=== PATIENT | male | born 2000 | race Caucasian/White ===

== ENCOUNTER 2025-01-15 01:06 | Day surgery (SDC) | payer OTHER, SELFPAY ==
[2025-01-09 14:50] VITALS: BMI 25.2
--- OUTSIDE RECORDS SUMMARY | 2025-01-15 01:09 | XMS_ITS | Clinical Summary ---
Author Organization [facility] [address] [place] [address] Care Team Providers Care Commercial Escrow Assistant Name Role Phone Unavailable Primary Care Provider Unavailabl e Encounters Date Type Department Care Team Description 12/24/2024 External Device Data [facility] ABSTRACTION Provider, Abstract 12/24/2024 External Device Data [facility] ABSTRACTION Provider, Abstract 12/24/2024 External Device Data [facility] ABSTRACTION Provider, Abstract 12/18/2024 8:00 AM CDT Ancillary [facility] [address] [place] [address] Jessenia Jennings NP Abnormal weight loss; Fam hx-polycystic kidney from Last 3 Months Social History Tobacco Use Types Packs/Day Years Used Date Smoking Tobacco: Never Assessed Sex and Gender Information Value Date Recorded Sex Assigned at Not on file Legal Sex Male 2:40 PM CDT Gender Identity Not on file Sexual Orientation Not on file Plan of Treatment Health Maintenance Due Date Last Done Comments HPV VACCINES (1 - Male 3-dos e series) 2013 INFLUENZA VACCINE (#1) 2024 COVID-19 Vaccine (2 - 2023-2 5 season) 2024 12/25/2020 DTAP/TDAP/TD VACCINES (6 - T d or Tdap) 01/22/2034 01/23/2024, 10/05/1999, 1998, Additional history exists HEPATITIS B VACCINES Completed 10/05/1999, 1998, 1998 Procedures Procedure Name Priority Date/Time Associated Diagnosis Comments CT ABDOMEN PELVIS W CONTRAST Routine 12/18/2024 8:18 AM CDT Abnormal weight loss Fam hx-polycystic kidney from Last 3 Months Results * CT ABDOMEN PELVIS W CONTRAST (12/18/2024 8:18 AM CDT) Anatomical Region Laterality Modality Abdomen Computed Tomogra phy 12/18/2024 8:11 AM CDT Impressions 12/18/2024 8:59 AM CDT IMPRESSION: No acute intra-abdominal process. Narrative 12/18/2024 8:59 AM CDT EXAM: CT ABDOMEN PELVIS W CONTRAST DATE: 12/18/2024 CLINICAL HISTORY: Unintentional weight loss, family history of polycystic kidney disease TECHNIQUE: After the uneventful intravenous administration of IOPAMIDOL 61 % INTRAVENOUS SOLUTION (SINGLE USE VIAL) Given:100 mL, computed tomographic images of the abdomen and pelvis were obtained in the axial plane. Coronal and sagittal reformatted images were performed. No prior study is available for comparison. FINDINGS: The lung bases are clear. The liver, gallbladder, spleen, pancreas, adrenal glands and kidneys are normal. The bowel loops are normal without evidence of bowel loop dilatation or bowel wall thickening. A normal appendix is present in the right lower quadrant. There is no free fluid or air. The vascular structures of the abdomen and pelvis are patent. There is no abdominal or pelvic adenopathy. The bladder is normal. The prostate is not enlarged. The subcutaneous tissues are normal. The visible bones are unremarkable. Procedure Note Shellie Valdez MD - 12/18/2024 EXAM: CT ABDOMEN PELVIS W CONTRAST DATE: 12/18/2024 CLINICAL HISTORY: Unintentional weight loss, family history of polycystic kidney disease TECHNIQUE: After the uneventful intravenous administration of IOPAMIDOL 61 % INTRAVENOUS SOLUTION (SINGLE USE VIAL) Given:100 mL, computed tomographic images of the abdomen and pelvis were obtained in the axial plane. Coronal and sagittal reformatted images were performed. No prior study is available for comparison. FINDINGS: The lung bases are clear. The liver, gallbladder, spleen, pancreas, adrenal glands and kidneys are normal. The bowel loops are normal without evidence of bowel loop dilatation or bowel wall thickening. A normal appendix is present in the right lower quadrant. There is no free fluid or air. The vascular structures of the abdomen and pelvis are patent. There is no abdominal or pelvic adenopathy. The bladder is normal. The prostate is not enlarged. The subcutaneous tissues are normal. The visible bones are unremarkable. IMPRESSION: No acute intra-abdominal process. Jessenia Jennings EDI SPECIALIST CT ORDERABLES Final Resul t from Last 3 Months Insurance [facility] [employer] PPO [id number]
--- OUTSIDE RECORDS SUMMARY | 2025-01-15 01:09 | XMS_ITS | Data Portability ---
Author Organization [place] [facility] Address [address] [place] [address] Care Team Providers Care Respiratory Support Technician Name Role Phone HARSHIL ELDER Primary Care Provider Unavailabl e Assessment Encounter Date Assessment Date Assessment LastModified by Organization Details LastModified Time 12/10/2024 12/10/2024 LABS Patient presents today for noted below ordered by: Harshil Elder Procedure explained and patient verbalized understanding of the procedure and labs to be drawn today. Venipuncture performed using aseptic technique in the side of the right antebrachial . Venipuncture successful on the 1st attempt with no complications. Dressing applied to the site(s) and pressure held. No signs or symptoms of venipuncture complications observed. Patient left ambulatory with no complaints of pain or discomfort voiced. I rudolph two tiger tubes and one lavender. Not available 12/10/2024 10:04:29 Plan of Treatment Reminders Order Date Submit Date Provider Last Modified By Organization Details Last Modified Time Details Appointments None recorded. Lab TSH + free T4, serum 2024 025 [facility], [facility] [place], [address], 14:11:07 CBC w/ auto diff 2024 025 [facility], [address] [place] [address], [address], 14:11:08 CMP, serum or plasma 2024 025 [email or web address], [facility] [place], [address], 5 14:11:08 HbA1c (hemoglobi n A1c), blood 2024 025 [facility]), [facility] [place], [address], 5 14:11:09 HIV 1 + 2, meaningful use set 2024 025 [facility]), [facility] [place], [address], 5 14:11:09 urinalysis , dipstick 2024 025 [facility], [address] [place] [address], [address], 5 09:11:16 LAURA (antinucle ar antibodies ) screen, serum 2024 025 [facility]), [facility] [place], [address], 5 14:11:10 HbA1c (hemoglobi n A1c), blood [address], [address], 11:54:30 lipid panel, blood [address], [address], 5 11:54:30 glucose, QN, fingerstic k, blood (glucomete r) [address], [address], 5 11:54:30 respirator y pathogens DNA and RNA panel, PCR, nasopharyn x 2024 025 [facility], [address] [place] [address], [address], 13:05:25 Referral gastroente rologist referral 2024 025 GARRICK wesley MD, [address], [address], [place], [address], 14:00:39 Procedures None recorded. Surgeries None recorded. Imaging CT, abdomen, w/wo contrast - Unintentio nal weight loss, family hx of polycystic kidney disease-6 family members on father's side. 2024 025 [email or web address] [facility], [address] [place] [address], [place], [address], 12:32:29 Medication Orders None recorded. Patient TargetsNo targets recorded. Patient Instructions Encounter Date Encounter Id Patient Instructions Last Modified By Organization Details Last Modified Time 12/10/2024 [id number] Encouraged a healthy well balanced diet low in trans/saturated fats and high in fresh fruits, vegetables, whole grains, lean proteins and omega 3 fish oils. Continue participating in regular cardiovascular exercise for 30-45 minutes 3-4 times per week. Pt verbalized understanding. janel Not available 12/10/2024 12:48:31 GI/nephrology referral, discuss care with collaborating physician, healthy high protein diet janel Not available 12/10/2024 12:49:19 Reason for Referral Posting Specialist Referral for Unintentional weight loss Unintentional weight loss-needs upper and lower endoscopy Referring Physician: Harshli Elder, Family Medicine, Encounter Date: 12/11/2024 Results Created Date Observation Date Name Description Value Unit Range Abnormal Flag Note LastModifiedBy Organization Detail LastModifiedTime 10/21/1910/21/2024 respi rator y patho gens DNA and RNA panel , PCR, nasop haryn x Adenovirus Not detect ed Not Available [facility] [address], [place], [address], 10/21/2024 11:52:32 10/21/19 25 10/21/2024 respi rator y patho gens DNA and RNA panel , PCR, nasop haryn x Coronavirus 229E Not detect ed Not Available [address], [address], 10/21/2024 11:52:32 10/21/19 25 10/21/2024 respi rator y patho gens DNA and RNA panel , PCR, nasop haryn x Coronavirus HKU1 Not detect ed Not Available [address], [address], 10/21/2024 11:52:32 10/21/19 25 10/21/2024 respi rator y patho gens DNA and RNA panel , PCR, nasop haryn x Coronavirus NL63 Not detect ed Not Available [address], [address], 10/21/2024 11:52:32 10/21/19 25 10/21/2024 respi rator y patho gens DNA and RNA panel , PCR, nasop haryn x Coronavirus OC43 Not detect ed Not Available [address], [address], 10/21/2024 11:52:32 10/21/19 25 10/21/2024 respi rator y patho gens DNA and RNA panel , PCR, nasop haryn x Human Metapneumovi roberto carlos Not detect ed Not Available [address], [address], 10/21/2024 11:52:32 10/21/19 25 10/21/2024 respi rator y patho gens DNA and RNA panel , PCR, nasop haryn x SARS-CoV-2 Not detect ed Not Available [address], [address], 10/21/2024 11:52:32 10/21/19 25 10/21/2024 respi rator y patho gens DNA and RNA panel , PCR, nasop haryn x Human Rhinovirus/E nterovirus Not detect ed Not Available [address], [address], 10/21/2024 11:52:32 10/21/19 25 10/21/2024 respi rator y patho gens DNA and RNA panel , PCR, nasop haryn x Influenza A Virus Not detect ed Not Available [address], [address], 10/21/2024 11:52:32 10/21/19 25 10/21/2024 respi rator y patho gens DNA and RNA panel , PCR, nasop haryn x Influenza A Virus A/H1 Not detect ed Not Available [address], [address], 10/21/2024 11:52:32 10/21/19 25 10/21/2024 respi rator y patho gens DNA and RNA panel , PCR, nasop haryn x Influenza A Virus A/H3 Detect ed Not Available [address], [address], 10/21/2024 11:52:32 10/21/19 25 10/21/2024 respi rator y patho gens DNA and RNA panel , PCR, nasop haryn x Influenza A Virus A/HI-2009 Not detect ed Not Available [facility] [place] [address], [address], 10/21/2024 11:52:32 10/21/19 25 10/21/2024 respi rator y patho gens DNA and RNA panel , PCR, nasop haryn x Influenza B Virus Not detect ed Not Available [address], [address], 10/21/2024 11:52:32 10/21/19 25 10/21/2024 respi rator y patho gens DNA and RNA panel , PCR, nasop haryn x Parainfluenz a virus (1,2,3,4) Not detect ed Not Available [address], [address], 10/21/2024 11:52:32 10/21/19 25 10/21/2024 respi rator y patho gens DNA and RNA panel , PCR, nasop haryn x Respiratory Syncytial Virus Not detect ed Not Available [address], [address], 10/21/2024 11:52:32 10/21/19 25 10/21/2024 respi rator y patho gens DNA and RNA panel , PCR, nasop haryn x Bordetella Parapetrussi s Not detect ed Not Available [facility] [address], [address], 10/21/2024 11:52:32 10/21/19 25 10/21/2024 respi rator y patho gens DNA and RNA panel , PCR, nasop haryn x Bordetella Pertussi Not detect ed Not Available [address], [address], 10/21/2024 11:52:32 10/21/19 25 10/21/2024 respi rator y patho gens DNA and RNA panel , PCR, nasop haryn x Chlamydia Pneumoniae Not detect ed Not Available [facility], [address], 10/21/2024 11:52:32 10/21/19 25 10/21/2024 respi rator y patho gens DNA and RNA panel , PCR, nasop haryn x Mycoplasma pneumoniae Not detect ed Not Available [facility] [address], [address], 10/21/2024 11:52:32 12/11/19 25 12/11/2024 TSH+F REE T4 TSH 3.460 uIU/m L 0.450- 4.500 normal Not Available [facility] ([facility]) [address] [place], [address], 12/11/2024 14:11:07 12/11/19 25 12/11/2024 TSH+F REE T4 T4,free(dire ct) 1.16 NG/dL 0.82-1 .77 normal Not Available [facility] ([facility]) [address] [place], [address], 12/11/2024 14:11:07 12/11/19 25 12/11/2024 CBC WITH DIFFE RENTI AL/PL ATELE T WBC 4.6 x10e3 /uL 3.4-10 .8 normal Not Available [facility] ([facility]) [address] [place], [address], 12/11/2024 14:11:08 12/11/19 25 12/11/2024 CBC WITH DIFFE RENTI AL/PL ATELE T RBC 4.76 x10e6 /uL 4.14-5 .80 normal Not Available [facility] ([facility]) [address] [place], [address], 12/11/2024 14:11:08 12/11/19 25 12/11/2024 CBC WITH DIFFE RENTI AL/PL ATELE T hemoglobin 14.1 g/dL 13.0-1 7.7 normal Not Available [facility] ([facility]) [address] [place], [address], 12/11/2024 14:11:08 12/11/19 25 12/11/2024 CBC WITH DIFFE RENTI AL/PL ATELE T hematocrit 42.9 % 37.5-5 1.0 normal Not Available [facility] ([facility]) [address] [place], [address], 12/11/2024 14:11:08 12/11/1912/11/2024 CBC WITH DIFFE RENTI AL/PL ATELE T MCV 90 fL 79-97 normal Not Available [facility] ([facility]) [address] [place], [address], 12/11/2024 14:11:08 12/11/19 25 12/11/2024 CBC WITH DIFFE RENTI AL/PL ATELE T MCH 29.6 pg 26.6-3 3.0 normal Not Available [facility] ([facility]) [address] [place], [address], 12/11/2024 14:11:08 12/11/1912/11/2024 CBC WITH DIFFE RENTI AL/PL ATELE T MCHC 32.9 g/dL 31.5-3 5.7 normal Not Available [facility] ([facility]) [address] [place], [address], 12/11/2024 14:11:08 12/11/19 25 12/11/2024 CBC WITH DIFFE RENTI AL/PL ATELE T RDW 12.7 % 11.6-1 5.4 Not Available [facility] ([facility]) [address] [place], [address], 12/11/2024 14:11:08 12/11/19 25 12/11/2024 CBC WITH DIFFE RENTI AL/PL ATELE T platelets 269 x10e3 /uL 150-45 0 normal Not Available [facility] ([facility]) [address] [facility], [place], [address], 12/11/2024 14:11:08 12/11/19 25 12/11/2024 CBC WITH DIFFE RENTI AL/PL ATELE T neutrophils 43 % not estab. normal Not Available [facility] ([facility]) [address] [facility], [place], [address], 12/11/2024 14:11:08 12/11/19 25 12/11/2024 CBC WITH DIFFE RENTI AL/PL ATELE T lymphs 42 % not estab. normal Not Available [facility] ([facility]) [address] [facility], [place], [address], 12/11/2024 14:11:08 12/11/19 25 12/11/2024 CBC WITH DIFFE RENTI AL/PL ATELE T monocytes 10 % not estab. normal Not Available [facility] ([facility]) [address] [facility], [place], [address], 12/11/2024 14:11:08 12/11/19 25 12/11/2024 CBC WITH DIFFE RENTI AL/PL ATELE T eos 4 % not estab. normal Not Available [facility] ([facility]) [address] [facility], [place], [address], 12/11/2024 14:11:08 12/11/19 25 12/11/2024 CBC WITH DIFFE RENTI AL/PL ATELE T basos 1 % not estab. normal Not Available [facility] ([facility]) [address] [facility], [place], [address], 12/11/2024 14:11:08 12/11/19 25 12/11/2024 CBC WITH DIFFE RENTI AL/PL ATELE T immature cells POST CLOSING SPECIALIST Not Available [facility] [address] [place], [address], 12/11/2024 14:11:08 12/11/1912/11/2024 CBC WITH DIFFE RENTI AL/PL ATELE T neutrophils (absolute) 2.0 x10e3 /uL 1.4-7. 0 normal Not Available [facility] ([facility]) [address] [place], [address], 12/11/2024 14:11:08 12/11/1912/11/2024 CBC WITH DIFFE RENTI AL/PL ATELE T lymphs (absolute) 1.9 x10e3 /uL 0.7-3. 1 normal Not Available [facility] ([facility]) [address] [place], [address], 12/11/2024 14:11:08 12/11/19 25 12/11/2024 CBC WITH DIFFE RENTI AL/PL ATELE T monocytes(ab solute) 0.5 x10e3 /uL 0.1-0. 9 normal Not Available [facility] ([facility]) [address] [place], [address], 12/11/2024 14:11:08 12/11/1912/11/2024 CBC WITH DIFFE RENTI AL/PL ATELE T eos (absolute) 0.2 x10e3 /uL 0.0-0. 4 normal Not Available [facility] ([facility]) [address] [place], [address], 12/11/2024 14:11:08 12/11/1912/11/2024 CBC WITH DIFFE RENTI AL/PL ATELE T baso (absolute) 0.0 x10e3 /uL 0.0-0. 2 normal Not Available [facility] ([facility]) [address] [place], [address], 12/11/2024 14:11:08 12/11/19 25 12/11/2024 CBC WITH DIFFE RENTI AL/PL ATELE T immature granulocytes 0 % not estab. Not Available [facility]) [address] [facility], [place], [address], 12/11/2024 14:11:08 12/11/19 25 12/11/2024 CBC WITH DIFFE RENTI AL/PL ATELE T immature grans (abs) 0.0 x10e3 /uL 0.0-0. 1 Not Available [facility] ([facility]) [address] [place], [address], 12/11/2024 14:11:08 12/11/19 25 12/11/2024 CBC WITH DIFFE RENTI AL/PL ATELE T NRBC POST CLOSING SPECIALIST Not Available [facility] ([facility]) [address] [facility], [place], [address], 12/11/2024 14:11:08 12/11/19 25 12/11/2024 CBC WITH DIFFE RENTI AL/PL ATELE T hematology comments: POST CLOSING SPECIALIST Not Available [facility]) [address] [place], [address], 12/11/2024 14:11:08 12/11/19 25 12/11/2024 COMP. METAB OLIC PANEL (14) glucose 94 mg/dL 70-99 normal Not Available [facility] ([facility]) [address] [place], [address], 12/11/2024 14:11:08 12/11/19 25 12/11/2024 COMP. METAB OLIC PANEL (14) BUN 16 mg/dL 6-20 normal Not Available [facility] ([facility]) [address] [place], [address], 12/11/2024 14:11:08 12/11/19 25 12/11/2024 COMP. METAB OLIC PANEL (14) creatinine 0.92 mg/dL 0.76-1 .27 normal Not Available [facility] ([facility]) [address] [facility], [place], [address], 12/11/2024 14:11:08 12/11/19 25 12/11/2024 COMP. METAB OLIC PANEL (14) eGFR 118 mL/mi n/1.7 3 >59 normal Not Available [facility] ([facility]) [address] [place], [address], 12/11/2024 14:11:08 12/11/19 25 12/11/2024 COMP. METAB OLIC PANEL (14) BUN/creatini ne ratio 17 9-20 normal Not Available [facility] [address] [facility], [place], [address], 12/11/2024 14:11:08 12/11/19 25 12/11/2024 COMP. METAB OLIC PANEL (14) sodium 139 mmol/ L 134-14 4 normal Not Available [facility] ([facility]) [address] [place], [address], 12/11/2024 14:11:08 12/11/19 25 12/11/2024 COMP. METAB OLIC PANEL (14) potassium 4.6 mmol/ L 3.5-5. 2 normal Not Available [facility] ([facility]) [address] [facility], [place], [address], 12/11/2024 14:11:08 12/11/19 25 12/11/2024 COMP. METAB OLIC PANEL (14) chloride 101 mmol/ L 96-106 normal Not Available [facility] ([facility]) [address] [place], [address], 12/11/2024 14:11:08 12/11/19 25 12/11/2024 COMP. METAB OLIC PANEL (14) carbon dioxide, total 25 mmol/ L 20-29 normal Not Available [facility] ([facility]) [address] [place], [address], 12/11/2024 14:11:08 12/11/19 25 12/11/2024 COMP. METAB OLIC PANEL (14) calcium 9.6 mg/dL 8.7-10 .2 normal Not Available [facility] ([facility]) [address] [place], [address], 12/11/2024 14:11:08 12/11/19 25 12/11/2024 COMP. METAB OLIC PANEL (14) protein, total 7.1 g/dL 6.0-8. 5 normal Not Available [facility] ([facility]) [address] [place], [address], 12/11/2024 14:11:08 12/11/19 25 12/11/2024 COMP. METAB OLIC PANEL (14) albumin 5.0 g/dL 4.3-5. 2 normal Not Available [facility] ([facility]) [address] [place], [address], 12/11/2024 14:11:08 12/11/19 25 12/11/2024 COMP. METAB OLIC PANEL (14) globulin, total 2.1 g/dL 1.5-4. 5 Not Available [facility] ([facility]) [address] [place], [address], 12/11/2024 14:11:08 12/11/19 25 12/11/2024 COMP. METAB OLIC PANEL (14) bilirubin, total 0.3 mg/dL 0.0-1. 2 normal Not Available [facility] ([facility]) [address] [place], [address], 12/11/2024 14:11:08 12/11/19 25 12/11/2024 COMP. METAB OLIC PANEL (14) alkaline phosphatase 74 IU/L 44-121 normal Not Available [facility] [address] [facility], [place], [address], 12/11/2024 14:11:08 12/11/1912/11/2024 COMP. METAB OLIC PANEL (14) AST (SGOT) 27 IU/L 0-40 normal Not Available [facility] ([facility]) [address] [facility], [place], [address], 12/11/2024 14:11:08 12/11/19 25 12/11/2024 COMP. METAB OLIC PANEL (14) ALT (SGPT) 20 IU/L 0-44 normal Not Available [facility] ([facility]) [address] [facility], [place], [address], 12/11/2024 14:11:08 12/11/1912/11/2024 HEMOG LOBIN A1C hemoglobin A1C 5.9 % 4.8-5. 6 above high normal Predi abete s: 5.7 - 6.4 Diabe faustino: >6.4 Glyce harry contr ol for adult s with diabe faustino: <7.0 Not Available [facility] ([facility]) [address] [facility], [place], [address], 12/11/2024 14:11:09 12/11/1912/11/2024 HIV AB/P2 4 AG WITH REFLE X HIV Ab/P24 Ag screen Non Reacti ve non reacti ve HIV-1 /HIV- 2 antib odies and HIV-1 p24 antig en were NOT detec harsha. There is no labor atory evide nce of HIV infec tion. HIV Negat giuseppe Not Available [facility] ([facility]) [address] [facility], [place], [address], 12/11/2024 14:11:09 12/11/1912/11/2024 LAURA W/REF LILIBETH LAURA direct Negati ve negati ve Not Available [facility] ([facility]) [address] [facility], [place], [address], 12/11/2024 14:11:10 12/11/1912/10/2024 urina lysis , dipst ick Color Idania Not Available [facility] [address], [address], 12/10/2024 08:49:10 12/11/1912/10/2024 urina lysis , dipst ick Appearance Clear Not Available [facility] [address], [address], 12/10/2024 08:49:10 12/11/1912/10/2024 urina lysis , dipst ick Leukocytes negati ve Not Available [facility], [address], 12/10/2024 08:49:10 12/11/1912/10/2024 urina lysis , dipst ick Nitrites negati ve Not Available [facility] [address], [address], 12/10/2024 08:49:10 12/11/1912/10/2024 urina lysis , dipst ick Glucose negati ve Not Available [facility], [address], 12/10/2024 08:49:10 12/11/1912/10/2024 urina lysis , dipst ick Bilirubin negati ve Not Available [facility] [address], [address], 12/10/2024 08:49:10 12/11/1912/10/2024 urina lysis , dipst ick Ketone negati ve Not Available [facility] [address], [address], 12/10/2024 08:49:10 12/11/1912/10/2024 urina lysis , dipst ick Specific Petroleum 1.015 Not Available [facility] [address], [address], 12/10/2024 08:49:10 12/11/1912/10/2024 urina lysis , dipst ick Blood negati ve Not Available [facility], [address], 12/10/2024 08:49:10 12/11/1912/10/2024 urina lysis , dipst ick pH 6.5 Not Available [facility], [address], 12/10/2024 08:49:10 12/11/1912/10/2024 urina lysis , dipst ick Protein negati ve Not Available [facility], [address], 12/10/2024 08:49:10 12/11/1912/10/2024 urina lysis , dipst ick Urobilinogen Normal (0.2) Not Available [address], [address], 12/10/2024 08:49:10 12/11/1912/10/2024 gluco se, QN, finge rstic k, blood (gluc omete r) blood glucose (fasting) 104 md/dL 65-99 Not Available [facility], [address], 12/02/2024 15:01:05 12/11/1912/10/2024 gluco se, QN, finge rstic k, blood (gluc omete r) blood glucose (non-fasting ) mg/dL <140 Not Available [facility], [address], 12/02/2024 15:01:05 12/11/19 25 12/10/2024 HbA1c (hemo globi n A1c), blood HbA1c 5.0 Not Available [address], [address], 12/02/2024 15:01:05 12/11/1912/10/2024 lipid panel , blood total cholesterol 136 mg/dL <200 Not Available [address], [address], 12/02/2024 15:01:05 12/11/19 25 12/10/2024 lipid panel , blood LDL 69 mg/dL <100 Not Available [address], [address], 12/02/2024 15:01:05 12/11/19 25 12/10/2024 lipid panel , blood HDL 50 mg/dL >50 Not Available [address], [address], 12/02/2024 15:01:05 12/11/19 25 12/10/2024 lipid panel , blood triglyceride s 85 mg/dL <150 Not Available [address], [address], 12/02/2024 15:01:05 12/11/19 25 12/10/2024 lipid panel , blood TC/HDL ratio 2.7 <4.5 Not Available [address], [address], 12/02/2024 15:01:05 12/19/19 25 12/18/2024 CT, abdom en + pelvi s, w/wo contr ast No observ ation record ed. [email or web address] [address], [place], [address], 12/18/2024 13:53:26 Result Notes None recorded. Problems Name Problem SNOMED Code Status Onset Date Resolution Date Notes Provider Name and Address Organization Details Recorded Time Error entry deleted [id number] Completed 201710/31/2023 None; PROBABIL ITY: 0 Confir mation: Confirme d Annota tedDispl ay: None Cla ssificat ion: Medical Not Available [facility] 4 04:25:00 Retained foreign body in eye 11189498 Active 2020 Retained foreign body in eye; PROBABIL ITY: 0 SENSIT IVITY: 0.0 Conf irmation : Confirme d Annota tedDispl ay: Foreign body of right eye Clas sificati on: Medical Lifecycl eDateTim e: 18:43:00 +00:00 Not Available [facility] 4 04:25:00 No current problems or disabili ty 076328519 Active 2017 No current problems or disabili ty; PROBABIL ITY: 0 Confir mation: Confirme d Annota tedDispl ay: No known health problems Classif ication: Medical Lifecycl eDateTim e: 18:14:35 +00:[address] [facility] 4 04:25:00 Sore throat 163696860 Active 2023 HARSHIL ELDER NP [address], [place], [address] , [place] - [facility] 4 15:56:51 Cough 01676391 Active 2023 HARSHIL ELDER NP [address], [place], [address] , [place] - [facility] 4 15:56:51 Lipoma of skin 978953025 Active 2023 HARSHIL ELDER NP [address], [place], [address] , [place] [facility] 4 10:06:27 Prediabe faustino 916051689 Active 2023 HARSHIL ELDER NP [address], [place], [address] , [place] [facility] 4 17:48:11 Unintent ional weight loss 469189190 Active 2023 HARSHIL ELDER NP [address], [place], [address] , [place] [facility] 4 11:52:01 Cellulit is of right upper limb [id number] 334030 Active 2023 Abril Mishra NP [address], [place], [address] , [place] [facility] 4 10:04:33 Problem Notes None recorded. Procedures Surgical History Date Name Laterality Status Provider Name and Address Organization Details Recorded Time 12/29/19 05 Tonsillectomy completed Alisia [place]andes [place] [facility] 01/23/2024 09:01:19 extraction of wisdom tooth completed Elly Gregorio [place] [facility] 01/02/2024 15:14:04 Imaging Results Imaging Date Name Status LastModified by Organiz ation Details LastModified Time 12/18/2024 CT, abdomen + pelvis, w/wo contrast completed [address], [place], [address], 12/18/2024 13:53:26 Procedure Notes None recorded. Medical Equipment None Reported. Allergies Allergen ID Allergen Name Allergen Category Reaction Reaction Severity Criticality Documentation Date Start Date Code Code System Note Provider Name and Address Organization Details Recorded Time 762606 nickel environme nt,medica tion Not available Not available Not available 10/31/2023 96226 29 RxNorm Comme nt: React ion Class : Aller gy; Not Available [facility] 02:54:31 Medications Name Sig Start Date Stop Date Status Note LastModified by Organization Details LastModified Time Claritin 10 mg tablet Take 1 tablet every day by oral route. 01/22 completed Not Available Not Available Not Available clobetaso l 0.05 % topical cream 04/28 completed StopType : Physicia n Stop Fer Jensen umber: [id number] S cheduled PRN: No Total Refills: 0 Consta ntIndica tor: Yes CSAS chedule: 0.0 acti ve_statu s_dt_tm: 10:52:31 AM Not Available Not Available Not Available acetamino phen 300 mg-codein e 30 mg tablet 01/01 completed Not Available Not Available Not Available triamcino lone acetonide 0.1 % topical cream APPLY A THIN LAYER TO THE AFFECTED AREA(S) BY TOPICAL ROUTE 2 TIMES PER DAY active Not Available Not Available No t Available cephalexi n 500 mg capsule Take 1 capsule every 6 hours by oral route for 7 days. 12/10 completed Not Available Not Available Not Available ibuprofen 200 mg tablet Take 1 tablet every 6 hours by oral route. 01/22 completed Not Available Not Available Not Available ibuprofen 600 mg tablet 01/01 completed Not Available Not Available Not Available Mucinex 600 mg tablet, extended release Take 1 tablet every 12 hours by oral route. 01/22 completed Not Available Not Available Not Available chlorhexi dine gluconate 0.12 % mouthwash 01/01 completed Not Available Not Available Not Available Flulaval Quad [id number] 60 mcg (15 mcg x 4)/0.5 mL intramusc ular susp. 07/26 completed StopType : Physicia n Stop Fer Jensen umber: [id number] N extDoseD ate: 10:48:00 AM Const antIndic ator: No activ e_status _dt_tm: 10:49:23 AM Not Available Not Available Not Available COVID-19 vaccine, Ad26.COV2 .S (Nicole) (PF) 0.5 mL IM suspensio n (EUA) 12/25 completed DrugForm : susp Sto pType: Physicia n Stop Fer Jensen umber: [id number] N extDoseD ate: 12/25/2020 11:36:00 AM Const antIndic ator: No activ e_status _dt_tm: 12/25/2020 11:37:04 AM Not Available Not Available Not Available Vitals Date Recorded Body height Body temperature Heart rate Oxygen saturation Oxygen saturation in Arterial blood by Pulse oximetry Respiratory rate Body mass index (BMI) Body weight Systolic blood pressure Diastolic blood pressure Provider Name and Address Organization Details Last Updated DateTime 4 185.42 cm 97.8 [degF] 68 /min 98 % 98 % 16 /min 24.9 kg/m2 27131.9 6 g 115 mm[Hg] 75 mm[Hg] Guerda Virk [place] [facility] 4 10:40:36 Date Recorded Body height Body mass index (BMI) Body weight Heart rate Body temperature Oxygen saturation Oxygen saturation in Arterial blood by Pulse oximetry Respiratory rate Systolic blood pressure Diastolic blood pressure Provider Name and Address Organization Details Last Updated DateTime 5 185.42 cm 23.2 kg/m2 73300.2 6 g 63 /min 97.4 [degF] 98 % 98 % 15 /min 113 mm[Hg] 63 mm[Hg] Wendy Aroldo [place] [facility] 5 08:27:43 Date Recorded Body height Body mass index (BMI) Body weight Provider Name and Address Organization Details Last Updated DateTime 01/08/2025 185.42 cm 24.1 kg/m2 21143.25 g lAisia Hernandes [place] [facility] 01/08/2025 11:54:46 Social History Question Answer Notes LastModified by Organizat ion Details LastModified Time Tobacco Smoking Status Never Smoker Elly merrill [place] [facility] 01/02/2024 15:13:40 What Is Your Level Of Alcohol Consumption? Occasional [email or web address] Information not available 01/23/2024 What Is Your Level Of Caffeine Consumption? Occasional [email or web address] Information not available 01/23/2024 How Much Tobacco Do You Chew? None [email or web address] Information not available 01/23/2024 In The 14 Days Before Symptom Onset, Have You Had Close Contact With A Laboratory-confir med COVID-19 While That Case Was Ill? No [email or web address] Information not available 01/02/2024 In The 14 Days Before Symptom Onset, Have You Had Close Contact With A Person Who Is Under Investigation For COVID-19 While That Person Was Ill? No [email or web address] Information not available 01/02/2024 Have You Been To An Area Known To Be High Risk For COVID-19? No Information not available 01/02/2024 What Is The Highest Grade Or Level Of School You Have Completed Or The Highest Degree You Have Received? 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 Never [email or web address] Information not available 01/23/2024 Does Anyone Physically Hurt You At Home? Never [email or web address] Information not available 01/23/2024 Does Anyone Scream Or Curse At You? Never [email or web address] Information not available 01/23/2024 Does Anyone Threaten/bully You With Harm? Never [email or web address] Information not available 01/23/2024 Lives With [email or web address] Information no t available 01/23/2024 Sleep Habits 6-8 Hrs Avg. Informatio n not available 01/23/2024 Have You Ever Served In The ? No [email or web address] Information not available 01/23/2024 What Is Your Relationship Status? [email or web address] Information not available 01/23/2024 Are You Passively Exposed To Smoke? No Information no t available 03/13/2024 Do You Or Have You Ever Used Smokeless Tobacco? Former Smokeless Tobacco User [email or web address] Information not available 01/23/2024 Has Tobacco Cessation Counseling Been Provided? No [email or web address] Information not available 01/02/2024 Do You Or Have You Ever Used Any Other Forms Of Tobacco Or Nicotine? No [email or web address] Information not available 01/02/2024 Sex: Unknown Functional Status None recorded. Mental Status None recorded. Family History Relationship Description Onset Age of this Age Resolved Age Notes LastModified by Organization Details LastModified Time Paternal Uncle Family history of Polycystic kidney 2 Uncles [email or web address] Not available 12/10/2024 08:15:56 Paternal Aunt Family history of Polycystic kidney 2 Aunts [email or web address] Not available 12/10/2024 08:15:56 Father Family history of Polycystic kidney [email or web address] Not available 12/10 08:15:56 Father Essential hypertension [email or web address] Not available 08:15:56 Unspecified Relation Family history of Polycystic kidney 2 cousin s [email or web address] Not available 12/10/2024 08:15:56 Mother Lupus erythematosu s [email or web address] Not available 12/10 08:15:56 Mother Myocardial infarction 2 years ago (2021) Not available 03/13/2024 11:29:40 Paternal Grandfather Malignant neoplasm of lung [email or web address] Not available 03/13 11:30:11 Paternal Grandfather Malignant neoplasm of prostate [email or web address] Not available 12/10 08:15:56 Medical History Condition Response Coronary Artery Disease N Gout N Macular Degeneration N Atrial Fibrillation N Heart Valve Disorder N Kidney Stones N Hyperthyroidism N MRSA N COPD N Depression N Migraine Headaches N Retinopathy Diabetic N Hodgkin's Lymphoma N Positive TB Skin Test N Obstructive Sleep Apnea N Sinus Infections N Infertility N Carpal Tunnel N Lupus (SLE) N DVT (Blood Clot in legs) N Rheumatoid Arthritis N Fibromyalgia N Incontinence, stress N Anxiety N Venous Insufficiency (Swelling of Legs & Ankles) N Anemia, other N Vit D Deficiency N Peptic Ulcer Disease N Menstrual Cycle- Heavy N Irritable bowel N Blood in urine N GERD (reflux) N Compression fracture of spine (vertebral ) N Carotid Artery Disease N Tuberculosis N AIDS/HIV N Hip fracture N Anemia, iron deficient N Asthma N Blood clotting disorder N Diabetes Type II N Peripheral Vascular Disease N Myocardial Infarction with Stent (Heart Attack) N Abnormal Pap N Diabetes Type I N Hepatitis N Cirrhosis N Seizure Disorder N Stroke (CVA) N Colon Cancer N Leukemia N Breast Cancer N Erectile Dysfunction (ED) N Myocardial Infarction w/o Stent (Heart A ttack) N Raynauds Disease N Lung Cancer N Glaucoma N Hypothyroidism N [place] N Bipolar N Hypertension (High Blood Pressure) N Irregular Menses N Other Rhythm Problem N Bone loss (Osteopenia or osteoporosis) N Varicose Veins N Hearing Loss N Cervical Cancer N Hypoglycemia N Hyperlipidemia (High Cholesterol) N Chronic Kidney Disease N Vit B12 Deficiency N Incontinence, urge N Menstrual Cycle- Painful N Panic Disorder N Schizophrenia N Osteoarthritis N BPH (enlarged prostate) N UTI Chronic N Lyme Disease N Prostate Cancer N Abdominal Aortic Aneurysm N Shingles (HZ) N Non-Hodgkin's Lymphoma N Ovarian Cancer N Lumbar Spine Disease N Abnormal Mammogram N Cervical Spine Disease N Congestive Heart Failure (CHF) N Eczema N Rectal Bleeding N Dementia N Diverticulitis N Bladder Cancer N Psoriasis N Gall Stones N Thrombocytopenia (low platelets) N Allergic Rhinitis (seasonal allergies) N Immunizations Vaccine Type Date Status Note Provider Nam e and Address Organization Details Recorded Time COVID-19 vaccine, vector-nr, rS-Ad26, PF, 0.5 mL 12/25/2020 completed Alisia Hernandes null, [place] [facility] 03/08/2024 14:11:05 Tdap 01/23/2024 completed Alisia Hernandes null, [place] [facility] 01/23/2024 10:26:42 Hib-Hep B 10/05/1999 completed Breshawna Virk null, [place] [facility] 08/26/2024 10:41:45 Hib-Hep B 1998 completed Breshawna Virk null, [place] [facility] 08/26/2024 10:41:45 Hib-Hep B 1998 completed Breshawna Virk null, [place] [facility] 08/26/2024 10:41:45 IPV 1998 completed Breshawna Virk null, [place] [facility] 08/26/2024 10:41:45 IPV 1998 completed Breshawna Virk null, [place] [facility] 08/26/2024 10:41:45 MMR 10/05/1999 completed Breshawna Virk null, [place] [facility] 08/26/2024 10:41:45 OPV 10/05/1999 completed Breshawna Virk null, [place] [facility] 08/26/2024 10:41:45 DTaP 10/05/1999 completed Breshawna Virk null, [place] [facility] 08/26/2024 10:41:45 DTaP 1998 completed Breshawna Virk null, [place] [facility] 08/26/2024 10:41:45 DTaP 1998 completed Breshawna Virk null, [place] [facility] 08/26/2024 10:41:45 DTaP 1998 completed Breshawna Virk null, [place] [facility] 08/26/2024 10:41:45 Past Encounters Encounter ID Performer Location Encounter Start Date Encounter Closed Date Diagnosis/Indication Diagnosis SNOMED-CT Code Diagnosis ICD10 Code Diagnosis Note [id number] HARSHIL ELDER NP [address] [address] 01/02/2024 14:54:02 01/02/2024 16:07:40 Sore throat 782799152 J02.9 Rapid strep is negative. Cough 11776743 R05.9 Claritin 10 mg tablet and Mucinx DM 600 mg given to pt in health center. Called and informed him [facility] y panel is negative. Encouraged to rest and push fluids. Stay home if you have a fever. Wear a well-fitti ng mask if you do have to be around others. Avoid travel. Use OTC medication s for symptom management . May take OTC antihistam ine, Flonase, Sudafed and Tylenol/Ib uprofen per package directions . Warm salt water gargles or throat lozenges for sore throat. Cool mist vaporizer in the home. F/u in clinic or with PCP if symptoms persist or worsen. Pt in agreement and verbalized understand ing. Appointmen t made in January to establish primary care. [id number] Alisia Hernandes [address] [address] 01/23/2024 08:57:01 01/23/2024 10:29:09 Adult health examination 353182419 Z00.00 Labs ordered. Will call him with the results. Requesting previous PCP records. Will review once received. F/u for eye exam. Will complete Vitality forms once labs received. Forms in file cabinet in receptionist nurse area. Pt verbalized understand ing. Administra tion of diphtheria, pertussis, and tetanus vaccine 141060595 Z23 Tdap booster administer ed and copy of VIS given to him. Side effects reviewed. Pt verbalized understand ing. Lipoma of skin 813465849 D17.30 Continue to monitor. F/u if you develop pain or swelling. Pt verbalized understand ing. [id number] HARSHIL ELDER NP [address] [address] 01/24/2024 17:46:37 01/24/2024 18:09:01 Prediabetes 281131364 R73.03 A1c is 5.8%. Encouraged a healthy well balanced diet low in trans/satu rated fats and high in fresh fruits, vegetables , whole grains, lean proteins and omega 3 fish oils. Avoid sugars and simple carbs. Participat e in regular cardiovasc ular exercise for 30-45 minutes 3-4 times per week. Will recheck on a yearly basis. Pt verbalized understand ing. Test resul t to patient by telephone [id number] Z71.2 CBC, CMP, TSH, Vitamin D and lipid panel WNL. Vitality forms completed and pt states he will come by tomorrow to pick them up. Informed it is his responsibi lity to send forms to [employer] for points. Pt verbalized understand ing. [id number] HARSHIL ELDER NP [employer] [address] [address] 03/13/2024 11:26:05 03/13/2024 12:54:20 Unintentional weight loss 630598867 R63.4 Per chart review, has lost 5 pounds in the last two months. A/G ratio was slightly elevated on recent CMP. A1c was 5.8%. Will recheck labs even though they were checked in early Jan, 2024. HIV and Hep C added. Will call pt with the results. Encouraged a healthy well balanced diet high in lean proteins. F/u in 1 month. If labs are normal with continued unintentio nal weight loss will need referral to GI or other specialist depending upon labs/sympt oms. Pt verbalized understand ing. [id number] HARSHIL ELDER NP [employer] [address] [address] 03/14/2024 13:59:26 03/14/2024 14:16:41 Unintentional weight loss 229185705 R63.4 Labs WN except A1c is still 5.8%. A/G ratio is back WNL on CMP. Encouraged a healthy well balanced diet high in lean proteins and low in sugars and simple carbs. F/u in 1 month. Pt verbalized understand ing. Prediabetes 169674703 R7 3.03 See above. Test resul t to patient by telephone [id number] Z71.2 CBC, CMP and TSH are WNL. HIV and Hep C are non reactive. Pt verbalized understand ing. [id number] HARSHIL ELDER NP [facility] [address] [address] 04/11/2024 08:26:53 04/11/2024 08:57:02 Unintentional weight loss 870109642 R63.4 Recent labs WNL. Weight is stable and same as last months visit. Encouraged a healthy well balanced diet high in lean proteins and low in sugars and simple carbs. F/u for any unintentio nal weight loss. Pt verbalized understand ing. [id number] Abril Mishra NP [address] [address] 08/23/2024 09:28:44 08/23/2024 11:10:33 Cellulitis of right upper limb [id number] 4059044 L03.113 Pt has no risk factors for MRSA. Will cover for staph/stre p with cephalexin 500 q6h X 7 days. Pt to take full course even if he begins to feel better. Can elevate extremity when possible. Can take tylenol/ib uprofen otc as directed as needed for pain/fever . Discussed cellulitis handout with pt and thoroughly discussed indication s of worsening/ when to seek immediate re-evaluat ion, including fever, worsening swelling, redness extending farther, n/v and cannot keep antibiotic s down, new pain in the area, etc. Pt verbalized understand ing and verbalized back the indication s of when to seek care. Otherwise pt will RTC for re-evaluat ion on Monday with this [employer] SPECIALIST to ensure improvemen t. Bite of insect 480418206 W57.XXXA Pt can use cortisone cream to the insect bites as needed for itching up to 2 times a day. Discussed r/b/se - and not to use for more than 2 weeks. Can also take otc antihistam ine like benadryl for itching at night; take as directed. [id number] Abril Mishra NP [facility] [address] [address] 08/26/2024 10:35:57 08/26/2024 11:20:41 Cellulitis of right upper limb 9393765298 5781197 L03.113 Pt to continue the full course of cephalexin . Can still continue to use the triamcinol one for itching/sw elling as needed but can taper off if not needed. If any changes, worsening, stops improving, etc. pt is to RTC. Pt verbalized understand ing and verbalized back the indication s of when to seek care. [id number] HARSHIL ELDER NP [address] [address] 10/21/2024 12:02:56 10/21/2024 13:13:17 Cough 75038428 R05.9 Informed him [employer] panel is positive for Influenza A H3. Educated on length of virus and symptom management . Discussed Tamiflu and side effects. Pt refused. Rest and push fluids. Stay home if you have a fever until you have been fever free for 24 hours without medication or if you do not feel well. Avoid contact with others. Wear a well-fitti ng mask if you do have to be around others. Avoid travel. Use OTC medication s for symptom management . May take OTC antihistam ine, Flonase, Sudafed, Mucinex DM and Tylenol/Ib uprofen per package directions . Cool mist humidifier in the home at night. Pt in agreement and verbalized understand ing. [id number] HARSHIL ELDER NP [address] [address] 12/10/2024 08:14:02 12/10/2024 13:01:35 Adult health examination 821078399 Z00.00 Unable to perform urine cotinine test due to issues with testing. Name/phone number added to list and will call once issues are resolved. A1c and lipids WNL. Pt verbalized understand ing. Unintentio nal weight loss 759659620 R63.4 UA negative. Labs ordered. Will call him with the results. Will need referral to GI if labs are negative. ? referral to nephrology based upon family hx. Pt asymptomat ic. Will discuss plan of care with my collaborat [facility] physician, Dr. Hughes, if labs are WNL. Pt verbalized understand ing. [id number] HARSHIL ELDER NP [address] [address] 12/11/2024 15:14:59 12/11/2024 16:38:24 Unintentional weight loss 869589354 R63.4 CBC, CMP and TSH WNL. LAURA and HIV are negative/n on reactive. Case discussed with my collaborat [facility] physician, Dr. Hughes. Referred to GI for upper and lower endoscopy. Also, CT scan of abdomen w/wo contrast ordered through [facility]. Called and spoke to Shena at [facility]. CT scan scheduled on 12/18/24 at 8 a.m. Pt came by health center to give us copy of his insurance card as [facility] will complete PA. Informed of date and time of CT scan and given contact informatio n. Instructed to be NPO for 6 hours prior to scan and [facility] between 7-7:30 on that date. Bring insurance card and photo ID. Will call him with results. Also, given contact informatio n for GI and encouraged to f/u if does not receive a call from office to schedule. Pt verbalized understand ing. Prediabetes 372087765 R7 3.03 A1c is 5.9%. Encouraged to limit sugar and simples carbs in his diet. Pt verbalized understand ing. Family his tory of Polycystic kidney 938897364 Z82.71 See above [id number] Alisia Hernandes [address] [address] 01/08/2025 11:54:20 01/08/2025 12:40:33 Health Concerns Section Related Observation LastModified by Organization Detai ls LastModified Time None Recorded Concern Status LastModified by Organization Details LastModified Time None Recorded Advance Directives Directive None Recorded Payers Encounter Date Sequence Insurance Name Policy Number Policy Fuentes Covered Member ID Fuentes Member ID Guarantor Name 08/26/2024 1 [employer] - [employer] - ALL PLANS (PPO) [id number] Maximus Scheiter UNKNOWN Maximus Scheiter 10/21/2024 1 [employer] - [employer] - ALL PLANS (PPO) [id number] Maximus Scheiter UNKNOWN Maximus Scheiter 12/10/2024 1 [employer] - [employer] - ALL PLANS (PPO) [id number] Maximus Gonsales UNKNOWN Maximus Gonsales 12/11/2024 1 [employer] - [employer] - ALL PLANS (PPO) [id number] Maximus Gonsales UNKNOWN Maximus Gonsales 01/08/2025 1 [employer] - [employer] - ALL PLANS (PPO) [id number] Maximus Gonsales [id number] Maximus Gonsales Notes Date Note Type Note Provider Name and Address Organization Details Recorded Time 08/26/2024 text/html 24 y/o M present s for cellulitis check from his visit on Monday. The redness is almost completely gone. Minimal residual itching in the R elbow but hasnt needed to use any medication or cream. Swelling is gone. Tolerated the cephalexin well with no side effects and has been compliant, though he did forget to take the pill today prior to arrival. No fever or chills. No CP/SOB. No weakness or fatigue. No n/v/d. No drainage from the bites. No warmth to the skin. Slightly erythematous at the R elbow but otherwise mostly back to normal. Abril Mishra NP [address], [place], [address], [place] [facility] 08/26/2024 10:55:23 10/21/2024 text/html Per telephone after earlier walk in for [facility] testing, pt reports cough, nasal congestion, headaches and rhinorrhea which started yesterday. Denies any fever, chills, body aches, sore throat, SOB or wheezing. No known sick contacts. HARSHIL ELDER NP [address], [place], [address], [place] [facility] 10/21/2024 13:09:31 12/10/2024 text/html [facility]. Primary care is managed by [facility]. Eats a healthy diet. Exercises by walking a lot at work. Last dental exam September 2024. UTD on eye exam. Does not smoke and drinks beer occasionally on the weekends. Drinks 2 cups of coffee daily.Is losing weight without trying. Weight is down 13 pounds in last 3 months and 16 pounds in last 11 months. Drinking protein shakes at times. Mother and have expressed concerns. Negative workup last December and weight was stable at that time.Six family members on his dad's side have polycystic kidney disease. Has noticed increased urination during the day but drinks a lot of water. Denies any fatigue, N/V, abdominal pain, hematuria, diarrhea, constipation or blood in his stool.Expecting first baby in May. HARSHIL ELDER NP [address], [place], [address], [place] [facility] 12/10/2024 12:54:28 12/11/2024 text/html Telephonic visit to review lab results from visit yesterday. Labs drawn due to weight loss of 13 pounds in last 3 months and 16 pounds total in last 11 months without trying. Asymptomatic. Family hx on father's side of polycystic kidney disease (six relatives). HARSHIL ELDER NP [address], [place], [address], [place] [facility] 12/30/2024 13:34:21
[2025-01-15 12:16] VITALS: BP 124/80; PULSE 71; RESP 18; TEMP 36; O2SAT 100
--- NOTE | 2025-01-15 12:21 | WPDANESEPPF ---
Anes - Initial Pre Proc Eval Procedure: Operation Date: 01/15/25 14:30 Proposed Procedures p Esophagogastroduodenoscopy & Colonoscopy - Tay Lopez MD Date/Time: 01/15/25 12:21 Surgeon: Tay Lopez MD Pre Op Diagnosis: Abnormal weight loss Patient Data Age: 24 Gender: M Height: 1.83 m Weight: 76.3 kg Last Vital Signs Temp 96.8 F L 01/15/25 12:16 Pulse 71 01/15/25 12:16 Resp 18 01/15/25 12:16 BP 124/80 01/15/25 12:16 Pulse Ox 100 01/15/25 12:16 O2 Del Method Room Air 01/15/25 12:16 Allergies Allergy/AdvReac Type Severity Reaction Status Date / Time nickel AdvReac Rash Verified 01/15/25 12:14 Home Medications ?Medication ?Instructions ?Recorded ?Confirmed ?Type No Home Medications 01/09/25 01/15/25 History Patient hx anesthesia problems: none Family hx anesthesia problems: none Results Review: All pre-operative results and documents have been reviewed as part of the pre-operative evaluation. [facility] Social History Social History Smoking status: Never smoker Living arrangements: with family Spiritual care concerns: No Anes - Eval Final PreProcedure Day of Procedure 01/15/25 12:21 Patient weight: normal and thin Lungs: normal air movement Airway: Mallampati scale class 1 Neurological: alert and oriented Last oral intake: >/= 8 hours ASA classification: I Emergent: no Anesthetic plan: proceed Anesthesia type and monitoring: general GIVS and standard monitoring Results Review: All pre-operative results and documents have been reviewed as part of the pre-operative evaluation. Healthy, here for wt loss, borderline hyperglycemia (no meds). Informed Consent: The patient's anesthetic plan and its attendant risks and benefits were discussed with the patient/family/POA. Questions were solicited and answers provided to the satisfaction of the patient/family/POA.
[2025-01-15] MEDS: LACTATED RINGERS 1,000 ML 150 ML IV CONT (12:25)
--- NOTE | 2025-01-15 12:34 | PM.HPGS ---
History of Present Illness History of Present Illness Consent: Risks, benefits, and alternatives have been discussed and questions answered. Patient agrees to proceed with procedure. Chief complaint: Abnormal weight loss Narrative: Maximus Gonsales is a 24 year old male here for first egd and colonoscopy, no gi issues but had untentional weight loss Review of Systems Review of Systems: All systems reviewed & are unremarkable except as noted in HPI and below PMFSH Past Medical History Medical History (Updated 01/15/25 @ 12:35 by Tay Lopez MD) Weight loss Social History Social History Smoking status: Never smoker Living arrangements: with family Spiritual care concerns: No Meds Home Medications and Allergies Home Medications ?Medication ?Instructions ?Recorded ?Confirmed ?Type No Home Medications 01/09/25 01/15/25 History Allergies Allergy/AdvReac Type Severity Reaction Status Date / Time nickel AdvReac Rash Verified 01/15/25 12:14 Vital Signs Vital Signs - 24 hr 01/15/25 12:16 Temperature 96.8 F L Pulse Rate 71 Respiratory Rate 18 Blood Pressure 124/80 Pulse Oximetry 100 Oxygen Delivery Room Air Exam Const: General: comfortable and no acute distress HENMT: Face/Nose/Sinus: Normal nares present Eyes: General: appearance normal, both eyes and all related structures Neck: Neck: no JVD Resp: Auscultation: clear to auscultation bilaterally Cardio: Rate: regular rate Rhythm: regular rhythm GI: Inspection: non-distended GI Palp: Yes Soft to palpation Skin: General skin exam: normal color Neuro: General: gait normal Speech: normal speech Extrem: General: normal to inspection Psych: Mental Status: mental status grossly normal Assessment and Plan Assessment and plan (1) Weight loss: Code(s): R63.4 - Abnormal weight loss Status: Acute Assessment and Plan: egd and colonoscopy
--- NOTE | 2025-01-15 12:48 | SUR.OPER ---
EGD start 1242 end 1244, Colonoscopy start 1247
[2025-01-15 12:56] VITALS: BP 98/57; PULSE 61; RESP 15; O2SAT 99
[2025-01-15 13:06] VITALS: BP 94/57; PULSE 58; RESP 13; O2SAT 100
[2025-01-15 13:16] VITALS: BP 108/63; PULSE 59; RESP 22; O2SAT 100
== END 2025-01-15 13:34 | disposition home or self-care (01) ==
PROVIDERS: PCP Nurse Practitioner; Visit Provider Internal Medicine Gastroenterology
PROC: 0DJ08ZZ Inspection of Upper Intestinal Tract, Via Natural or Artificial Opening Endoscopic (ICD-10-PCS; CPT 45378; principal; 2025-01-15 14:30)
DX: R63.4 Abnormal weight loss (principal)
CPT/HCPCS: 43239; 45378; 88305; J2704; J7120

== ENCOUNTER 2025-08-26 11:21 | Emergency (ER) | payer OTHER, SELFPAY ==
[2025-08-26 11:33] VITALS: BP 129/87; PULSE 85; RESP 16; TEMP 36.6; O2SAT 99
--- NOTE | 2025-08-26 12:01 | ED.URI ---
HPI - URI/Sore Throat General Chief Complaint: Upper Respiratory Infection Stated Complaint: SORE THROAT/COUGH Time Seen by Provider: 08/26/25 12:01 Source: patient, RN notes reviewed and old records reviewed Mode of arrival: ambulatory Limitations: no limitations History of Present Illness HPI Narrative: 25-year-old male presents to the [facility] with 2-3 day history of a sore throat, 4-5 day history of cough, sinus drainage. Reports that he did take NyQuil last night. No treatment prior to arrival today. Treatments prior to arrival: cold medicine Related Data Home Medications ?Medication ?Instructions ?Recorded ?Confirmed ?Last Taken ?Type No Home Medications 01/09/25 01/15/25 Unknown History Allergies Allergy/AdvReac Type Severity Reaction Status Date / Time nickel AdvReac Rash Verified 08/26/25 11:28 Review of Systems Review of Systems: All systems reviewed & are unremarkable except as noted in HPI and below Constitutional: Constitutional: Reports no additional constitutional complaints ENT: Reports as per HPI and Reports sore throat Cardiovascular: Cardiovascular: Reports no additional cardiovascular complaints, Denies chest pain and Denies dyspnea Respiratory: Respiratory: Reports as per HPI, Denies chest congestion, Reports cough and Denies dyspnea Musculoskeletal: Musculoskeletal: Reports no additional musculoskeletal complaints Integumentary/Breasts: Skin/Breast: Reports system reviewed and no additional complaints, except as docu PMFSH Past Medical History Medical History Weight loss Social History Social History Smoking status: Never smoker Living arrangements: with family Spiritual care concerns: No Comments At the time of my signature, I reviewed and agree with the nursing past medical, surgical, social, and family history. There is no relevant family history pertinent to the patient complaint. Exam Const: General: cooperative, healthy appearing, comfortable, no acute distress, well developed, alert and well nourished Nutritional Appearance: well nourished Orientation/consciousness: patient oriented x3 Limitations: no limitations HENMT: Head: normal to inspection Ears: hearing grossly normal bilaterally, external ears normal, TM's normal bilaterally, EAC's normal, mastoids normal and no periauricular adenopathy Mouth: Yes Normal oral and palatal mucosa present, Yes lip normal, Yes tongue normal and Yes moist mucous membranes Throat: posterior oropharynx normal, tonsils normal, uvula midline, postnasal drainage and no uvular edema Eyes: General: appearance normal, both eyes and all related structures Alignment and Position: alignment normal Neck: Neck: normal visual inspection, full ROM, no lymphadenopathy and no meningeal signs Chest: Chest palpation & inspection: normal inspection of the chest Resp: Effort & Inspection: normal respiratory effort and able to speak in complete sentences Auscultation: clear to auscultation bilaterally, no crackles, no rales, no rhonchi and no wheezes Cardio: Rate: regular rate Skin: General skin exam: normal color and no rashes or lesions noted Neuro: General: patient oriented x3, gait normal, moves all extremities and no meningeal signs Cognition (Neuro): normal cognition Speech: normal speech Gait exam (Neuro): Normal gait present Extrem: General: normal to inspection, full ROM, capillary refill normal and normal gait Psych: Appearance: grossly normal and well kempt Mental Status: mental status grossly normal Speech and movement: Normal speech and movement present and Clear speech present Affect: normal affect Attitude: cooperative Course Course Level of Care: Express Care Visit Vital Signs Vital signs: Vital Signs Temperature 98 F 08/26/25 11:33 Pulse Rate 85 08/26/25 11:33 Respiratory Rate 16 08/26/25 11:33 Blood Pressure 129/87 08/26/25 11:33 Pulse Oximetry 99 08/26/25 11:33 Oxygen Delivery Room Air 08/26/25 11:33 Temperature 98 F 08/26/25 11:33 Pulse Rate 85 08/26/25 11:33 Respiratory Rate 16 08/26/25 11:33 Blood Pressure 129/87 08/26/25 11:33 Pulse Oximetry 99 08/26/25 11:33 Oxygen Delivery Room Air 08/26/25 11:33 reviewed MDM MDM Narrative Medical decision making narrative: Patient sitting in exam room. Patient is nontoxic, vitals stable. Patient presents with URI symptoms for 2-5 days. Strep test negative, will culture. Patient is appropriate for outpatient treatment of viral URI Discharge instructions reviewed with patient, as well as provided in writing per nursing staff. The instructions also include specific and strict return/GO TO THE ER as well as f/u information. All questions have been answered, and the patient deny any further questions with discharge and discharge plan. Some parts of this dictation were generated by voice recognition software and may contain typographical and/or grammatical inaccuracies. Differential Diagnosis Differential Diagnosis: Differential diagnostic considerations for upper respiratory infection include upper respiratory infection, croup, otitis media, sinusitis, viral infection, bronchitis, influenza, pharyngitis, strep, uvulitis.? Lab Data Labs: Lab Results 08/26/25 Range/Units 12:03 POC Grp A Strep Screen Negative (Negative) reviewed Discharge Plan Discharge Clinical Impression: PND (post-nasal drip), Upper respiratory infection, viral Patient Disposition: Home Condition: Stable Instructions: Antibiotic Form, Upper Respiratory Infection (ED), Postnasal Drip (DC) Additional Instructions: Your rapid strep swab was negative today at [facility]. A throat culture will be sent to the laboratory for further testing. If the test is positive, you will receive a phone call within 48 hours and an appropriate antibiotic will be initiated at that time. Your symptoms are likely due to a viral illness, which is not treated with antibiotics. Typically viral infections last 7-10 days, can linger for couple of weeks. It is very important to treat your symptoms. Drink plenty of water, Gatorade, Pedialyte, ice pops or Jell-O. -Alternate Tylenol and Motrin per package directions for fever or pain. You can alternate every 4 hours -Antihistamine medication such as Zyrtec/Claritin/Anabel during the day can help improve symptoms. -doing daily nasal irrigations can help relieve pressure your sinuses. Things like a Neti pot -Use Flonase twice a day for 5 days then daily to help reduce the inflammation and dry up your sinuses. -You can also use Mucinex. Be sure to drink plenty of water with this medication at least 8 ounces with every dose and it is important to drink 8 to 10 glasses of water per day. Water is a natural decongestant -Eat and drink things that are easy to swallow, like tea or soup, or popsicles. -Oral rinses such as: Salt water gargles and/or may use topical anesthetic (eg. Chloraseptic spray) or lozenges to relieve dryness or throat pain). -Frequent hand washing or hand orthophoto tech/draftsman is one of the best ways to prevent spread of infection. -Using a vaporizer or humidifier at night will also help thin secretions and help with coughing up phlegm. -Follow up with primary care provider in 7-10 days if condition is not improving - For new or worsening symptoms go directly to the nearest ER Patient Language: Prydeinig Prescriptions: No Action No Home Medications Follow-up/Referrals: Dick,Jessenia Soriano NP [Primary Care Provider, Unknown] - 1 Week Stand Alone Forms: Work/School Release IP Time of Disposition: 12:15
[2025-08-26 12:05] LABS: EDSTREPNEGPOS1 Negative (Negative)
== END 2025-08-26 12:17 | disposition home or self-care (01) ==
PROVIDERS: Emergency Provider Nurse Practitioner; PCP Nurse Practitioner
DX: R09.82 Postnasal drip (principal); J06.9 Acute upper respiratory infection, unspecified
CPT/HCPCS: 87081; 87880; 99213; G0463